=== PATIENT | female | born 1975 | race Caucasian/White ===

== ENCOUNTER → 2020-07-04 | Outpatient (CLI) | payer MEDICARE ==
[~2020-07-04] MED LIST: ALLERGY RELIEF25 MG PO; BREO ELLIPTA 21 EACH INH; CARAFATE1 GM PO; CLEOCIN HCL300 MG PO; COMBIVENT0.074 GM/I INH; CURCUMIN250 GM PO; ECOTRIN81 MG PO; EPINEPHRINE; FERROUS SULFAT324 MG PO; GABAPENTIN800 MG PO; IBUPROFEN800 MG PO; IMITREX100 MG PO; ISOSORBIDE MONO60 MG PO; MAGNESIUM400 M2 PO; METOPROLOL SUCC25 MG PO; MICROZIDE12.5 MG PO; NITROMIST4.1 GM TL; NORCO 7.5-3251 EACH PO; ONDANSETRON ODT8 MG PO; OSTEO BI-FLEX1 EAC1 PO; PHENERGAN 25 MG25 M1 PO; POTASSIUM GLUC500 MG PO; PROAIR HFA8.5 GM INH; PROTONIX40 MG PO; REXULTI PO; SINGULAIR10 MG PO; TRANSDERM-SCOP1 EACH TOP; VALIUM 5 MG TAB5 MG PO; VICTOZA 3-0.6 MG/0.1 SQ; VITAMIN C500 MG PO; VOLTAREN100 GM TP; VRAYLAR PO; ZANAFLEX4 M1 PO
[2020-07-05 10:15] LABS: RHEUMATOID ARTHRITIS FACTOR 11.1 IU/mL (0.0-13.9)
== END ==
LOC: LAB 13:27
PROVIDERS: Nurse Practitioner Family
DX: M25.50 Pain in unspecified joint (principal); D89.9 Disorder involving the immune mechanism, unspecified; R76.8 Other specified abnormal immunological findings in serum
CPT/HCPCS: 36415; 83520; 85652; 86140; 86200; 86431

== ENCOUNTER → 2020-08-09 | Outpatient (CLI) | payer MEDICARE ==
[2020-08-10 08:14] LABS: COMPLEMENT C3, SERUM 177 mg/dL (82-167); COMPLEMENT C4, SERUM 31 mg/dL (12-38)
[2020-08-10 11:14] LABS: HBSAG SCREEN Negative (Negative)
[2020-08-12 15:09] LABS: A/G RATIO 0.9 (0.7-1.7); ALBUMIN 3.5 g/dL (2.9-4.4); ALPHA-1-GLOBULIN 0.3 g/dL (0.0-0.4); ALPHA-2-GLOBULIN 1.4 g/dL (0.4-1.0); BETA GLOBULIN 1.3 g/dL (0.7-1.3); GAMMA GLOBULIN 1.1 g/dL (0.4-1.8); GLOBULIN, TOTAL 4.1 g/dL (2.2-3.9); M-SPIKE Not Observed g/dL (Not Observed); PROTEIN, TOTAL, SERUM 7.6 g/dL (6.0-8.5)
[2020-08-13 12:41] LABS: HEP B CORE AB, TOT Negative
[2020-08-13 12:42] LABS: HCV AB <0.1 s/co ratio
== END ==
LOC: LAB 12:35
PROVIDERS: Internal Medicine
DX: Z11.59 Encounter for screening for other viral diseases (principal); G89.29 Other chronic pain; R70.0 Elevated erythrocyte sedimentation rate; R53.83 Other fatigue; M25.50 Pain in unspecified joint
CPT/HCPCS: 36415; 82728; 84155; 84165; 85384; 85652; 86140; 86160; 86704; 86803; 87340